=== PATIENT | male | born 1950 | race Caucasian/White ===

== ENCOUNTER 2019-07-25 01:06 | Observation (INO) ==
[2019-07-25] MEDS ORDERED: SODIUM CHLORIDE 500 ML IV STA (01:29)
[2019-07-25] MEDS ORDERED: NITROSTAT SL STA (01:29)
[2019-07-25 01:44] LABS: HEMATOCRIT 44.3 % (42.0-52.0)
[2019-07-25] MEDS ORDERED: GI COCKTAIL PO STA (01:48)
--- NOTE | 2019-07-25 01:59 | ED.PDOC ---
General ED Provider: Dr. CHEYENNE HUDSON Chief Complaint: Chest Pain Stated Complaint: Chest pain for 2-3 hours feels like a gas babble. was coded last week at [facility] and intubeted for a few days. He has a history of Atrial fibrillation and is on anticoagulation. He is [facility] also Time Seen by Physician: 12:50 Mode of Arrival: Walk-In Information Source: Patient Primary Care Provider: JAMIL ACOSTA MD Nursing and Triage Documentation Reviewed and Agree: Yes Does patient meet sepsis criteria?: No System Inflammatory Response Syndrome: Not Applicable Sepsis Protocol: For patient's 13 years and over: Temp is 96.8 and below OR 101 and greater Pulse >90 BPM Resp >20/minute Acutely Altered Mental Status Are patient's symptoms suggestive of a new infection, such as: -Pneumonia -Skin, Soft Tissue -Endocarditis -UTI -Bone, Joint Infection -Implantable Device -Acute Abdominal Infection -Wound Infection -Meningitis -Blood Stream Catheter Infection -Unknown Cardiovascular Complaint Exam Chest Pain Complaint/Exam Onset: Sudden Duration: 3 hours Symptoms Are: Still present (but better ) Timing: Intermittent Initial Severity: Moderate Current Severity: Mild Location: Reports Midsternal Pain Radiates: Reports Back Character: Reports Aching Aggravating: Reports None Alleviating: Reports Nitro Associated Signs and Symptoms: Reports Short of air History of Healthcare-Acquired Pneumonia: Reports No TAD Risk Factors: Reports Hypertension and CHF Prior Care for this Complaint: No Recent Stress Test: No Recent Echo/LV Function: No JVD Present: No Subcutaneous Emphysema Present: No Diminshed Breath Sounds: Yes Reproducible Chest Wall Pain: No Chest Picture: 1. area of chest pain Differential Diagnoses: CHF and GI Diseasae Review of Systems Review Of Systems Constitutional: Reports No symptoms Eyes: Reports No symptoms Ears, Nose, Mouth, Throat: Reports No symptoms Respiratory: Reports Cough and Short of air (mild ) Cardiac: Reports Chest pain (like a gas pain) GI: Reports No symptoms : Reports No symptoms Musculoskeletal: Reports No symptoms Skin: Reports No symptoms Neurological: Reports No symptoms Endocrine: Reports No symptoms Hematologic/Lymphatic: Reports No symptoms All Other Systems: Reviewed and Negative [facility] Medical History (Updated 07/25/19 @ 02:42 by CHEYENNE HUDSON MD) Acute respiratory failure with hypoxia (Acute) Chronic atrial fibrillation (Acute) Physical Exam Physical Exam Appearance: Reports Ill-appearing Ill-appearing: Mild Pain Distress: Moderate Eyes: Reports Conjunctiva clear ENT: Reports Nose normal Neck: Supple Respiratory: Reports Airway patent, Breath sounds clear, Breath sounds equal and Respirations nonlabored Cardiovascular: Reports RRR, Pulses normal, No rub and No murmur GI/: Reports Soft, Nontender, No masses, Bowel sounds normal and No Organomegaly Musculoskeletal: Reports Normal strength, ROM intact, No edema and No calf tenderness Skin: Reports Warm, Dry and Normal color Neurological: Reports Sensation intact, Motor intact, Reflexes intact, Cranial nerves intact, Alert and Oriented Psychiatric: Reports Anxious Interpretation Radiology Interpretation Radiology Interpretation By: Radiologist Radiology Results: No acute changes Exam Interpreted: Portable CXR Physician Notification Case Discussed Physician Notified: Norma Foley NP Time of Notification: 02:35 Critical Care Note Critical Care Note Total Time (mins): 35 Course Course Hematology/Chemistry: 07/25/19 01:40 07/25/19 01:40 Orders, Labs, Meds: Lab Review 07/25/19 07/25/19 07/25/19 01:29 01:40 01:40 WBC 9.43 RBC 4.60 L Hgb 15.1 Hct 44.3 MCV 96.3 H MCH 32.8 H MCHC 34.1 RDW Coeff of Radha 13.1 Plt Count 136 L Neutrophils % (Manual) 67.0 Lymphocytes % (Manual) 17.0 Monocytes % (Manual) 9.0 Myelocytes % 2.0 H Reactive Lymphocytes 5.0 Anisocytosis Not present PT 15.0 H INR 1.57 Puncture Site Rb O2 Saturation 78.0 L ABG pH 7.416 ABG pCO2 33.0 L ABG pO2 42.0 L* ABG HCO3 21.2 L ABG Total CO2 22 ABG Base Excess -3 L Louis Test + O2 Delivery Device Venous blood gas FiO2 % 21.0 Sodium Potassium Chloride Carbon Dioxide Anion Gap BUN Creatinine Estimated GFR (MDRD) BUN/Creatinine Ratio Glucose Calcium Total Bilirubin AST ALT Alkaline Phosphatase Total Creatine Kinase Troponin I NT-Pro-B Natriuret Pep Total Protein Albumin Globulin Albumin/Globulin Ratio 07/25/19 07/25/19 01:40 01:40 WBC RBC Hgb Hct MCV MCH MCHC RDW Coeff of Radha Plt Count Neutrophils % (Manual) Lymphocytes % (Manual) Monocytes % (Manual) Myelocytes % Reactive Lymphocytes Anisocytosis PT INR Puncture Site O2 Saturation ABG pH ABG pCO2 ABG pO2 ABG HCO3 ABG Total CO2 ABG Base Excess Louis Test O2 Delivery Device FiO2 % Sodium 133.0 L Potassium 4.37 Chloride 102.5 Carbon Dioxide 23.2 Anion Gap 11.67 BUN 17.6 Creatinine 0.81 Estimated GFR (MDRD) 94.00 BUN/Creatinine Ratio 21.72 Glucose 144.0 H Calcium 8.77 Total Bilirubin 0.46 AST 26.6 ALT 27.0 Alkaline Phosphatase 158.4 H Total Creatine Kinase 29.1 L Troponin I 0.024 NT-Pro-B Natriuret Pep 2800.000 H Total Protein 6.12 L Albumin 3.29 L Globulin 2.83 Albumin/Globulin Ratio 1.16 Orders Category Date Time Status ABG DRAW REQUEST Stat CARDIO 07/25/19 01:31 Ordered EKG-(ED ONLY) Stat CARDIO 07/25/19 01:30 Ordered ED APPLY O2 .ONCE EMERGENCY 07/25/19 01:29 Active ED IV/MEDIPORT/POWERPORT .ONCE EMERGENCY 07/25/19 01:29 Active ABG Stat LAB 07/25/19 01:29 Completed CBC W/ AUTO DIFF Stat LAB 07/25/19 01:40 Completed COMPREHENSIVE METABOLIC PANEL Stat LAB 07/25/19 01:40 Completed CREATINE KINASE Stat LAB 07/25/19 01:40 Completed MANUAL DIFFERENTIAL Stat LAB 07/25/19 01:40 Completed NT-PROBNP Stat LAB 07/25/19 01:40 Completed PT WITH INR Stat LAB 07/25/19 01:40 Completed TROPONIN I Stat LAB 07/25/19 01:40 Completed 0.9 % Sodium Chloride [Saline Flush] MEDS 07/25/19 01:29 Active 1 syr IVF PRN PRN Mag-Al Plus//Lidocaine [Gi Cocktail] MEDS 07/25/19 01:48 Discontinued 30 ml PO ONCE STA Nitroglycerin [Nitrostat] MEDS 07/25/19 01:29 Discontinued 0.4 mg SL ONCE STA Sodium Chloride 0.9% [Sodium Chloride] 500 ml MEDS 07/25/19 01:29 Active IV 125 mls/hr CHEST, 1V AP ONLY Stat RADS 07/25/19 01:30 Completed Medications Generic Name Dose Route Start Last Admin Trade Name Freq PRN Reason Stop Dose Admin Sodium Chloride 500 mls @ 125 mls/hr 07/25/19 01:29 07/25/19 01:41 Sodium Chloride IV 07/25/19 05:28 125 mls/hr .Q4H STA Administration Sodium Chloride 1 syr 07/25/19 01:29 07/25/19 01:43 Saline Flush IVF 1 syr PRN PRN Administration To flush IV Discontinued Medications Generic Name Dose Route Start Last Admin Trade Name Freq PRN Reason Stop Dose Admin Al Hydroxide/Mg Hydroxide 30 ml 07/25/19 01:48 Gi Cocktail PO 07/25/19 01:49 ONCE STA Nitroglycerin 0.4 mg 07/25/19 01:29 07/25/19 01:44 Nitrostat SL 07/25/19 01:30 0.4 mg ONCE STA Administration Vital Signs: Temp Pulse Resp BP Pulse Ox 07/25/19 01:08 99.1 F 117 H 24 155/88 H 98 HOLLI Risk Score Age >/= 65: Yes >/= 3 CAD Risk Factors: Yes Known CAD (Stenosis >/= 50%): Yes ASA Use in Past 7 Days: No Severe Angina (>/= 2 episodes in 24 hours): No EKG ST Changes >/= 0.5mm: No Postive Cardiac Marker: No HOLLI Total Score: 3 HOLLI Risk Score: Risk Score Odds of by 30D 0 0.1 (0.1-0.2) 1 0.3 (0.2-0.3) 2 0.4 (0.3-0.5) 3 0.7 (0.6-0.9) 4 1.2 (1.0-1.5) 5 2.2 (1.9-2.6) 6 3.0 (2.5-3.6) 7 4.8 (3.8-6.1)
--- NOTE | 2019-07-25 02:25 | DI ---
EXAM: AP single view of the chest. HISTORY: Chest pain. FINDINGS: There is a single lead pacemaker. The cardiac silhouette and pulmonary vasculature are wit hin normal limits. The costophrenic angles are clear. There is left basilar atelectasis and/or pneu monia. Impression: Left basilar atelectasis and/or pneumonia.
[2019-07-25] MEDS ORDERED: ZOFRAN 4 MG/2 ML IVP PRN ×2 (02:50→11:10)
[2019-07-25] MEDS ORDERED: MORPHINE SULFATE TAB PO PRN ×2 (02:56→12:00)
[2019-07-25] MEDS ORDERED: MYLICON PO SCH (02:56)
[2019-07-25] MEDS ORDERED: DUONEB NEB PRN (02:56)
[2019-07-25] MEDS ORDERED: NORCO 7.5-325 PO PRN (02:56)
[2019-07-25] MEDS ORDERED: TRANSDERM-SCOP 1.5 MG PATCH TD PRN (02:56)
[2019-07-25] MEDS ORDERED: MYLANTA SUSP PO PRN (03:20)
[2019-07-25 03:32] VITALS: BMI 33.3
[2019-07-25] MEDS: TESSALON PERLES PO SCH ×2 (03:39→09:48)
[2019-07-25] MEDS: NEXIUM IV IVP SCH ×2 (03:47→10:16)
[2019-07-25] MEDS: SODIUM CHLORIDE 1,000 ML IV SCH ×2 (06:22→17:14)
[2019-07-25] MEDS ORDERED: DIABETA PO SCH (09:00)
[2019-07-25] MEDS ORDERED: VITAMIN D PO SCH ×2 (09:00→11:10)
[2019-07-25] MEDS ORDERED: ZEBETA PO SCH ×2 (09:00→11:10)
[2019-07-25] MEDS ORDERED: MUCINEX PO SCH (09:00)
[2019-07-25 09:07] LABS: HEMATOCRIT 45.3 % (42.0-52.0)
--- NOTE | 2019-07-25 09:41 | PCM ---
Chief Complaint Chief Complaint: "Chest pain" History of Present Illness History of Present Illness: Patient was examined at 8:50 AM 07/25/2019 at his bedside by this SHEET ROCK TAPER HELPER. Elenita Pascual is a 69 yo male w/ recent admission to [facility] 06/25/2019 through 07/10/2019 w/ discharge diagnoses: sepsis, chronic afib, afib with RVR, pneumonia, acute metabolic encephalopathy, ARF with hypoxia, hyponatremia, CHF, S/A node dysfunction. While hospitalized he was in ICU the entire time w/ patient coding d/t cardiac arrest w/o CA (per Dr. Bucio report to patient) w/ patient responding to 5 minutes of CPR and intubation/vent for 3 days. His primary medications were Ceftriaxone, Vancomycin and diltiazem gtt. Patient was d/c to [place], [place] and pt. went AMA 07/12/19 afternoon as he "was tired of everyone telling him what to do." Notes his has COPD, so he has used her supply at 2L/NC O2 whenever his O2 sat was 94% one or two times a day for an hour or more if needed to relieve mild SOB. Mr. Elenita Pascual, [facility] patient, then presented to [facility] ER 07/24/2019 approx 23:00 w/ c/o's new onset of "gas bubble-like" upper mid sternal chest pressure radiating to "my back between my shoulders" rated 7-8 on admission/at worst and currently 0/10. CP lasted approximately 2.5 hrs. 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 He tried rest at home, but no other tx. There was associated SOB at rest, anxiety, and racing heart; denies diaphoresis, dizziness, syncope, N/V, weakness, N/T, or edema. Patient states he has had no CP in the past except mid-sternal ribs TTT after CPR that fractured the ribs in that area. Patient is currently wanting "quick treatment" so that he can go home. SHEET ROCK TAPER HELPER has requested records from his recent admission from [facility] to review. Dr. Seymour was called and informed by MICK Buchanan of consult and will see the patient later today. Patient is currently stable and pain free. Patient was admitted as Obs for Acute CP to Obi Varner, SHEET ROCK TAPER HELPER Hospitalist and Dr. Gonzalez, who saw the patient last in the DC 07/13/2019 per his chart notes[address] Dr. Gonzalez has been called and refuses patient admission as he was seeing patient only as NH patient and not for his office practice. Dr. Mateus Seymour has seen patient in past for cardiology consult and has been consulted this visit. Previous consults per External Chart reviews include Dr. Dominick Bucio, 06/26/2019 of [facility] and Gonzales Morales, [facility]. Review of requested records H&P, Progress Notes, D/C Summary, Lab results, EKG, Radiology reporst, ECHO findings, and other information of [facility] with these findings (performed per SHEET ROCK TAPER HELPER Hospitalist Sanam Varner): * 07/25/18 Pt was admitted to PCU Day #1 w/ acute respiratory distress; Ceftriaxone and Doxycycline empiric therapy for CAP started. * 06/25/2019 CT Head w/o contrast= Normal ventricle size; Minimal cortical atrophy; Moderate small vessel disease w/in the periventricular & subcortical white matter; No hemorrhage or mass effect; No cortical infact seen; Clear paranasal sinuses. * 06/25/19 CXR= Infiltrate or atelectasis RLL; The lungs are poorly inflated; Moderate cardiomegaly. * 06/25/19 EKG reading A Fib w/ LBBB w/o obvious signs of acute ischemia. No rate given. * 06/26/2019 CXR Portable =Atlelctatic LLL; Lungs otherwise well aerated. No pneumothorax; Heart size stable; The pulmonary vasculature are much less prominent on thei exam with decreased perbronchial and interstitial thickening; The osseous structures and surrounding soft tissues demonstrate no acute abnormality. * 06/26/2019 Medtronic Single Chamber Pacemaker interrogation: Normal pacemaker function; Adequate battery reserve; Appropriate pacing & sensing thresholds, and diagnostic functions; No adjustments made. (Dr. Bucio) * Recent abnormal labs = 07/10/19 03:43 WBC 17.3 ; Hgb 13.9 ; PLT 283; Na 129 ; K 4.9 ; CL 92 ; CO2 26; BUN 22 ; Creatinine 0.9 ; Glucose 273. * 06/25/2019 14:42 Troponin <0.01 Patient was told upon discharge by director of neighborhood service center, Dr. Dominick Bucio) that he did not have an CA this hospital admission. * 06/29/2019 Hospital Course entry note LVEF 20-25% No ECHO sent per [facility] system. 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 s/p intubation/vent/CPR.) and pain with breathing (Upper mid sternal area where he has rib fx's d/t CPR.); No shortness of air, wheeze and hemoptysis Cardiovascular: chest pain (see HPI; none at present.); No left arm pain, diaphoresis, orthopnea, edema, palpitations and syncope Gastrointestinal: No abdominal pain, nausea, vomiting, diarrhea, melena, hematemesis, hematochezia and constipation (Last BM 07/24/2019.) Genitourinary: No dysuria, hematuria, frequency, incontinence and flank pain Neurological: No headache, dizziness, seizure, numbness, weakness, speech difficulty, problems with walking, tremor and fainting Musculoskeletal: pain ("normal arthritis pain in my hands, arsenio. knees----nothing I can't live with"; denies pain prn for this pain. ); No swelling in joints Skin: bruising (Bilateral upper extremities from multiple blood draw/IV attempts recently & coumadin use. ); No rash, pruritus and wounds Hematology: easy bruising; No easy bleeding and swollen glands Endocrine: other (07/12/2019 Had swelling entire BLE after starting Pregabalin therapy at SNF and resolve 3 days after d/c'd.); No weight changes, cold intolerance, heat intolerance, excessive thirst, excessive hunger and polyuria Psychiatric: No depression, anxiety, sleeplessness, hopelessness, suicidal (Denies hx SI/HI) and hallucinations Habits: No tobacco use (ST use of cigarettes <1PPD x 4 yrs 1971 while in service. NO tobacco since. ), substance use and alcohol use Allergies Allergies Allergy/AdvReac Type Severity Reaction Status Date / Time lisinopril AdvReac Unknown cough Verified 07/25/19 12:51 pregabalin AdvReac Unknown Swelling Verified 07/25/19 10:17 [facility] Medical History Acute respiratory failure with hypoxia (Resolved) Atrial fibrillation with rapid ventricular response (Acute) Chronic atrial fibrillation (Chronic) Chronic low back pain (Chronic) Chronic respiratory failure with hypoxia, on home O2 therapy (Chronic) Chronic viral hepatitis C (Inactive) Compressed vertebrae (Acute) Elevated brain natriuretic peptide (BNP) level (Acute) Essential hypertension (Chronic) Gastroesophageal reflux disease with hiatal hernia (Chronic) Hyperlipemia (Chronic) Hypertensive cardiomegaly with heart failure (Chronic) longterm current use of anticoagulant (Chronic) Morbid obesity (Acute) long-term resident (Inactive) Pacemaker (Chronic) Sick sinus syndrome (Inactive) Spinal stenosis (Acute) Systolic CHF, chronic (Acute) Type 2 diabetes mellitus with complication, with long-term current use of insulin (Chronic) [place] [employer] (Chronic) Surgical History History of cholecystectomy (Acute) Pacemaker (Acute) Family History Mother Congestive heart disease Diabetes TIA (transient ischemic attack) Father Cancer Other Hypertension Social History Smoking and tobacco status: Former smoker Tobacco: How many years used: 3 Passive smoking exposure: No Smoking status start date: 07/25/67 Smoking status stop date: 03/20/71 How long ago did patient quit smokin years ago; <1PPD X 3 yrs. Alcohol intake: former Substance use type: does not use Household members: spouse Housing: house Lives independently: No Highest education level completed: high school graduate service: Yes Current occupational status: retired Do you think of yourself as: straight/heterosexual Current gender identity: male Medications Medications: Medications Generic Name Dose Route Start Last Admin Trade Name Freq PRN Reason Stop Dose Admin Al Hydroxide/Mg Hydroxide 30 ml 01/26/20 03:20 Mylanta Susp PO DAILY PRN Heartburn Atorvastatin Calcium 10 mg 07/25/19 21:00 Lipitor PO BEDTIME COUNT INCLUDES THE [facility] Benzonatate 100 mg 07/25/19 02:56 07/25/19 03:39 Tessalon Perles PO 100 mg TID COUNT INCLUDES THE [facility] Administration Bisoprolol Fumarate 5 mg 07/25/19 09:00 Zebeta PO DAILY COUNT INCLUDES THE [facility] Cholecalciferol 5,000 unit 07/25/19 09:00 Vitamin D PO DAILY COUNT INCLUDES THE [facility] Diltiazem HCl 180 mg 07/25/19 21:00 Cardizem Cd PO BEDTIME COUNT INCLUDES THE [facility] Esomeprazole Magnesium 40 mg 07/25/19 03:30 07/25/19 03:47 Nexium Iv IVP 40 mg DAILY COUNT INCLUDES THE [facility] Administration Fluticasone Propionate 1 spray 07/25/19 21:00 Flonase LAINE BEDTIME COUNT INCLUDES THE [facility] Glyburide 10 mg 07/25/19 09:00 Diabeta PO BID COUNT INCLUDES THE [facility] Sodium Chloride 1,000 mls @ 83 mls/hr 07/25/19 03:30 07/25/19 06:22 Sodium Chloride IV 83 mls/hr .Q12H3M COUNT INCLUDES THE [facility] Administration Insulin Glargine 28 unit 07/25/19 21:00 Lantus SUBCUT BEDTIME COUNT INCLUDES THE [facility] Morphine Sulfate 2 mg 07/25/19 02:50 Morphine 2 Mg/Ml Syringe IVP Q4H PRN Severe Pain Morphine Sulfate 30 mg 07/25/19 02:56 Morphine Sulfate Tab PO BID PRN Severe Pain Ondansetron HCl 4 mg 07/25/19 02:50 Zofran 4 Mg/2 Ml IVP Q6H PRN Nausea / Vomiting Scopolamine HBr 1 patch 07/25/19 02:56 Transderm-Scop 1.5 Mg Patch TD Q3D PRN for secretions Sodium Chloride 1 syr 07/25/19 01:29 07/25/19 01:43 Saline Flush IVF 1 syr PRN PRN Administration To flush IV Warfarin Sodium 5 mg 07/26/19 17:00 Coumadin PO DIRECTED@1700 COUNT INCLUDES THE [facility] Warfarin Sodium 7.5 mg 07/25/19 17:00 Coumadin PO WEEKLY@1700 COUNT INCLUDES THE [facility] Body Composition Height: 5 ft 11 in Weight: 239 lb 6.752 oz Body Mass Index (BMI): 33.3 Physical Examination HEENT: Vital Signs Temp Pulse Pulse Resp BP Pulse Ox 07/25/19 10:00 98 F 79 20 136/83 98 07/25/19 08:00 22 07/25/19 05:53 97.8 F 78 20 128/78 99 07/25/19 03:32 114 H 07/25/19 03:27 98.5 F 85 14 100 07/25/19 01:08 99.1 F 117 H 24 155/88 H 98 General Appearance: Patient is moderately ill-appearing, well-nourished man in [facility]. Skin: Scattered irregular patches of bruising bilateral forearms L>R. No rash. No pallor. Normal texture for elderly man, fair turgor, warm, dry. Head: Normocephalic; No lesions or tenderness to palpation. No signs of trauma. All sinuses non- tender on palpation. Eyes: Lids w/o swelling, erythema, or lesions. PERRLA. No signs of pallor. No scleral icterus. No erythema of iris/conjunctiva. No drainage or periorbital edema. Vision grossly intact. Ears: No pinna tenderness or abnormality. Bilateral canals patent w/o erythema, tenderness, edema, wax or d/c. TM's shiny gilles/doran w/ landmarks present; no b ulging or fluid present. Hearing intact. Nose: Patent bilaterally. Nasal mucosa pink and moist. No lesions. No discharge or blood noted. Throat: Pharynx w/o slight injection; no cobblestoning, lesions or PND. Tonsils w/o deviation, enlargement or lesions. Uvula midline. Mouth: Oral mucosa pink and moist. Few missing teeth w/ non-inflammed dental carries area right upper molar region. No gum erythema, swelling, or lesions. Dentition discussed and appropriate oral care. Tongue normal/midline. Neck: Supple; NT to palpation w/o masses or lymphadenopathy; no thyromegaly; FROM w/o pain. Chest: Chest wall symmetric; no pectus deformity. TTT mid-sternal region over CPR area w/ slight indentation noted at greatest point of tenderness to palpation. Telemetry --A fib rate 80-90's. Heart: Carotid Arteries normal, no bruits or abnormal pulsations. Jugular veins w/o pulsations or JVD. PMI non-displaced; no palpable thrill or heaves. RRR, S1, S2 w/ no abnormal sounds. No murmurs, rubs, or gallops. PPP 2+/4+ =. Extremities w/o clubbing, cyanosis, edema or significant temperature changes. NBB. Lungs: CTA; No rales, rhonchi, or wheezes. No retractions. Respirations easy and regular. No retractions. Intermittent TNP cough. O2 @ 2L/NC w/ O2 sat 98-99%. Pt. pulling O2 off at times. Abdomen: Non-distended, soft, NT, no rebound tenderness or guarding, no masses or organomegaly. FRITZ/SO present; no bruits. No hernias noted. Rectal not examined. Neurological: A/OX4. Cranial nerves II-XII evaluated and intact. ARAUJO well; symmetrical. Symmetrical face and body posture. Adam's negative. Rhomberg weakly positive. Reflexes intact w/ DTR 2+/4+ patellar, Achilles, bicep, brachial and triceps. Strength 4+/5+ = bilaterally UE and LE. Tandem gait was normal symmetric. Sensation intact to light touch and sharp vs dull on distal arms and legs. No Parkinsons or other tremor, head bobbing, or pill rolling tremor noted. M/S: ARAUJO well and symmetrically. No digital clubbing or cyanosis present w/ sensation intact X4. All extremities w/ normal temperature; no swelling, edema, or ulcerations. DP pulses 2+ bilaterally. Pedal hair intact. Normal capillary refill. NeuroPsych: Alert & oriented X4. Good eye contact. Cooperative at present. Fidgeting at times in bed. Thought content appropriate. ST & LT memory intact w/ helps on phone finding his past medical information; admits that he does not remember much about his recent hospitalization at [facility] w/ sepsis and CPR resulting in Vent dependency. Judgement appropriate. Denies active thoughts or plan SI or HI; no history suicide attempt or ideation in past. Lab/Tests/Diagnostic Imaging Lab/Tests/Diagnostic Imaging: Lab Review 07/25/19 07/25/19 07/25/19 01:29 01:40 01:40 WBC 9.43 RBC 4.60 L Hgb 15.1 Hct 44.3 MCV 96.3 H MCH 32.8 H MCHC 34.1 RDW Coeff of Radha 13.1 Plt Count 136 L Neutrophils % (Manual) 67.0 Lymphocytes % (Manual) 17.0 Monocytes % (Manual) 9.0 Myelocytes % 2.0 H Reactive Lymphocytes 5.0 Anisocytosis Not present PT 15.0 H INR 1.57 Puncture Site Rb O2 Saturation 78.0 L ABG pH 7.416 ABG pCO2 33.0 L ABG pO2 42.0 L* ABG HCO3 21.2 L ABG Total CO2 22 ABG Base Excess -3 L Louis Test + O2 Delivery Device Venous blood gas FiO2 % 21.0 Sodium Potassium Chloride Carbon Dioxide Anion Gap BUN Creatinine Estimated GFR (MDRD) BUN/Creatinine Ratio Glucose Calcium Total Bilirubin AST ALT Alkaline Phosphatase Total Creatine Kinase Troponin I NT-Pro-B Natriuret Pep Total Protein Albumin Globulin Albumin/Globulin Ratio 07/25/19 07/25/19 01:40 01:40 WBC RBC Hgb Hct MCV MCH MCHC RDW Coeff of Radha Plt Count Neutrophils % (Manual) Lymphocytes % (Manual) Monocytes % (Manual) Myelocytes % Reactive Lymphocytes Anisocytosis PT INR Puncture Site O2 Saturation ABG pH ABG pCO2 ABG pO2 ABG HCO3 ABG Total CO2 ABG Base Excess Louis Test O2 Delivery Device FiO2 % Sodium 133.0 L Potassium 4.37 Chloride 102.5 Carbon Dioxide 23.2 Anion Gap 11.67 BUN 17.6 Creatinine 0.81 Estimated GFR (MDRD) 94.00 BUN/Creatinine Ratio 21.72 Glucose 144.0 H Calcium 8.77 Total Bilirubin 0.46 AST 26.6 ALT 27.0 Alkaline Phosphatase 158.4 H Total Creatine Kinase 29.1 L Troponin I 0.024 NT-Pro-B Natriuret Pep 2800.000 H Total Protein 6.12 L Albumin 3.29 L Globulin 2.83 Albumin/Globulin Ratio 1.16 Patient: ELENITA PASCUAL Acct:[id number] Record: [id number] : 1950Loc: RADRoom/Bed: Age/Sex: 68 / MADM Status: REG CLI Date of Service: 07/13/19 Ordering Physician: JAMIL ACOSTA MD Procedure(s): CT CHEST W/O CONTRAST Report Number(s): [id number] Accession Number(s): [id number] cc: JAMIL ACOSTA MD EXAM: CT THORAX HISTORY: Shortness of breath. TECHNIQUE: CT thorax without intravenous contrast. Multiplanar images presented. COMPARISON: None FINDINGS: Mild cardiac enlargement. No pericardial effusion. There is atherosclerotic disease including the coronary artery levels. Pacemaker is noted. There are a few small nonspecific mediastinal and hilar lymph nodes. There are a few small discoid opacities in the lung bases slightly more noticeable on the left. Lungs are otherwise clear. No central vascular congestion, interstitial edema, pleural fluid or pneumothorax. Bones are within normal limits. There is a tiny sliding hiatal hernia with fluid in the lower portion of the esophagus consistent with gastroesophageal reflux. Incidental note of a fatty right adrenal nodule measuring 16 mm most consistent with an adenoma. Nonspecific bilateral perinephric fat stranding IMPRESSION: 1. There are a few small discoid opacities in the lung bases slightly more noticeable on the left. These could represent areas of atelectasis or pneumonia. Correlate clinically. Lungs are otherwise clear. 2. Cardiomegaly. 3. Atherosclerotic disease. 4. Probable tiny sliding hiatal hernia. Gastroesophageal reflux. 5. Small right adrenal adenoma. Dictated By:BILLY GUILLAUME Signed By:BILLY GUILLAUME 07/16/2019 [facility] U/S Venous Scan Arsenio Legs Doppler Patient: ELENITA PASCUAL Acct:[id number] Record: [id number] : 1950Loc: RADRoom/Bed: Age/Sex: 68 / MADM Status: REG CLI Date of Service: 07/16/19 Ordering Physician: JAMIL ACOSTA MD HISTORY: Leg edema. FINDINGS: Bilateral lower extremity venous Doppler exam. Real time doran-scale, Doppler spectral analysis and color-flow Doppler imaging performed. The veins targeted for evaluation include the common femoral, greater saphenous, profundus, femoral, popliteal, peroneal, anterior tibial and posterior tibial. The right anterior tibial veins were not seen. The evaluated veins demonstrated normal spontaneous flow and compression without evidence of thrombosis. IMPRESSION: No venous thrombosis identified within the areas evaluated. Patient: ELENITA PASCUAL WAcct:[id number] Record: [id number] : 1950Loc: EDRoom/Bed: Age/Sex: 69 / MADM Status: REG ERDate of Service: 07/25/19 Ordering Physician: CHEYENNE HUDSON MD Procedure(s): CHEST, 1V AP ONLY EXAM: AP single view of the chest. HISTORY: Chest pain. FINDINGS: There is a single lead pacemaker. The cardiac silhouette and pulmonary vasculature are within normal limits. The costophrenic angles are clear. There is left basilar atelectasis and/or pneumonia. Impression: Left basilar atelectasis and/or pneumonia. Dictated By:HOWARD RICO Signed By:HOWARD RICO Orders Category Date Time Status ADMIT OBSERVATION [PLACE PATIENT OBSERVATION] .TO ADMISSION 07/25/19 02:49 Active MEDSURG (MONITORED BED) ABG DRAW REQUEST Stat CARDIO 07/25/19 01:31 Completed ECHOCARDIOGRAM 2D-M MODE Routine CARDIO 07/25/19 02:50 Ordered EKG-(ED ONLY) Stat CARDIO 07/25/19 01:30 Completed ACTIVITY .BR with BRP CARE 07/25/19 03:19 Active ACTIVITY .Up ad Mihaela CARE 07/25/19 02:51 Active BLOOD GLUCOSE MONITORING 0630,1100,1700,2100 CARE 07/25/19 03:20 Active GIVE HS SNACK 2100 CARE 07/25/19 02:52 Active INTAKE & OUTPUT Q8HR CARE 07/25/19 02:50 Active NOTIFY PHYSICIAN OF CONSULT ONCE CARE 07/25/19 03:21 Active NOTIFY PHYSICIAN OF CONSULT ONCE CARE 07/25/19 03:41 Completed SCD [VTE PREVENTION] .SCD 24 Hours CARE 07/25/19 03:18 Active TELEMETRY MONITORING TELE CARE 07/25/19 02:51 Active VITAL SIGNS Q4HR CARE 07/25/19 02:51 Active WEIGH PATIENT 0600 CARE 07/25/19 08:07 Active CONSULT DOCTOR [PHYSICIAN CONSULTATION] [CONS] Routine CONSULTS 07/25/19 03:21 Ordered PHYSICIAN CONSULTATION [CONS] Routine CONSULTS 07/25/19 07:00 Ordered 2 GRAM SODIUM DIET DIETARY 07/25/19 Breakfast Ordered ADA 1800 OJSE. DIET DIETARY 07/25/19 Breakfast Ordered HS SNACK DIETARY 07/25/19 Dinner Ordered ED APPLY O2 .ONCE EMERGENCY 07/25/19 01:29 Active ED IV/MEDIPORT/POWERPORT .ONCE EMERGENCY 07/25/19 01:29 Active ABG Stat LAB 07/25/19 01:29 Completed BASIC METABOLIC PANEL DAILY@0600 LAB 07/26/19 06:00 Ordered BASIC METABOLIC PANEL Routine LAB 07/25/19 09:00 Received CBC W/ AUTO DIFF DAILY@0600 LAB 07/25/19 09:00 Received CBC W/ AUTO DIFF DAILY@0600 LAB 07/26/19 06:00 Ordered CBC W/ AUTO DIFF Stat LAB 07/25/19 01:40 Completed COMPREHENSIVE METABOLIC PANEL Stat LAB 07/25/19 01:40 Completed CREATINE KINASE Q8H LAB 07/25/19 09:00 Received CREATINE KINASE Q8H LAB 07/25/19 17:00 Ordered CREATINE KINASE Stat LAB 07/25/19 01:40 Completed MANUAL DIFFERENTIAL Stat LAB 07/25/19 01:40 Completed NT-PROBNP Stat LAB 07/25/19 01:40 Completed PT WITH INR Stat LAB 07/25/19 01:40 Completed TROPONIN I Q8H LAB 07/25/19 09:00 Received TROPONIN I Q8H LAB 07/25/19 17:00 Ordered TROPONIN I Stat LAB 07/25/19 01:40 Completed 0.9 % Sodium Chloride [Saline Flush] MEDS 07/25/19 01:29 Active 1 syr IVF PRN PRN Atorvastatin Calcium [Lipitor] MEDS 07/25/19 21:00 Active 10 mg PO BEDTIME Benzonatate [Tessalon Perles] MEDS 07/25/19 02:56 Active 100 mg PO TID Bisoprolol Fumarate [Zebeta] MEDS 07/25/19 09:00 Active 5 mg PO DAILY Cholecalciferol (Vitamin D3) [Vitamin D] MEDS 07/25/19 09:00 Active 5,000 unit PO DAILY Diltiazem HCl [Cardizem Cd] MEDS 07/25/19 21:00 Active 180 mg PO BEDTIME Esomeprazole Sodium [Nexium IV] MEDS 07/25/19 03:30 Active 40 mg IVP DAILY Fluticasone Propionate [Flonase] MEDS 07/25/19 21:00 Active 1 spray LAINE BEDTIME Glyburide [Diabeta] MEDS 07/25/19 09:00 Active 10 mg PO BID Guaifenesin [Mucinex] MEDS 07/25/19 09:00 Discontinued 600 mg PO BID Hydrocodone Bit/Acetaminophen [Fischer 7.5-325] MEDS 07/25/19 02:56 Discontinued 1 tab PO TID PRN Insulin Glargine,Hum.rec.anlog [Lantus] MEDS 07/25/19 21:00 Active 28 unit SUBCUT BEDTIME Mag Hydrox/Al Hydrox/Simeth [Mylanta Susp] MEDS 07/25/19 03:20 Active 30 ml PO DAILY PRN Mag-Al Plus//Lidocaine [Gi Cocktail] MEDS 07/25/19 01:48 Discontinued 30 ml PO ONCE STA Morphine Sulfate [Morphine 2 mg/ml Syringe] MEDS 07/25/19 02:50 Active 2 mg IVP Q4H PRN Morphine Sulfate [Morphine Sulfate Tab] MEDS 07/25/19 02:56 Active 30 mg PO BID PRN Nitroglycerin [Nitrostat] MEDS 07/25/19 01:29 Discontinued 0.4 mg SL ONCE STA Ondansetron HCl/Pf [Zofran 4 mg/2 ml] MEDS 07/25/19 02:50 Active 4 mg IVP Q6H PRN Scopolamine Hydrobromide [Transderm-Scop 1.5 mg Patch] MEDS 07/25/19 02:56 Active 1 patch TD Q3D PRN Simethicone [Mylicon] MEDS 07/25/19 02:56 Discontinued 80 mg PO QID Sodium Chloride 0.9% [Sodium Chloride] 1,000 ml MEDS 07/25/19 03:30 Active IV 83 mls/hr Sodium Chloride 0.9% [Sodium Chloride] 500 ml MEDS 07/25/19 01:29 Discontinued IV 125 mls/hr Warfarin Sodium [Coumadin] MEDS 07/26/19 17:00 Active 5 mg PO DIRECTED@1700 Warfarin Sodium [Coumadin] MEDS 07/25/19 17:00 Active 7.5 mg PO WEEKLY@1700 RESUSCITATION STATUS Routine OTHERS 07/25/19 02:50 Ordered CHEST, 1V AP ONLY Stat RADS 07/25/19 01:30 Completed Medications Generic Name Dose Route Start Last Admin Trade Name Freq PRN Reason Stop Dose Admin Al Hydroxide/Mg Hydroxide 30 ml 07/25/19 03:20 Mylanta Susp PO DAILY PRN Heartburn Atorvastatin Calcium 10 mg 07/25/19 21:00 Lipitor PO BEDTIME RIAZ Benzonatate 100 mg 07/25/19 02:56 07/25/19 03:39 Tessalon Perles PO 100 mg TID RIAZ Administration Bisoprolol Fumarate 5 mg 07/25/19 09:00 Zebeta PO DAILY RIAZ Cholecalciferol 5,000 unit 07/25/19 09:00 Vitamin D PO DAILY COUNT INCLUDES THE [facility] Diltiazem HCl 180 mg 07/25/19 21:00 Cardizem Cd PO BEDTIME COUNT INCLUDES THE [facility] Esomeprazole Magnesium 40 mg 07/25/19 03:30 07/25/19 03:47 Nexium Iv IVP 40 mg DAILY COUNT INCLUDES THE [facility] Administration Fluticasone Propionate 1 spray 07/25/19 21:00 Flonase LAINE BEDTIME COUNT INCLUDES THE [facility] Glyburide 10 mg 07/25/19 09:00 Diabeta PO BID COUNT INCLUDES THE [facility] Sodium Chloride 1,000 mls @ 83 mls/hr 07/25/19 03:30 07/25/19 06:22 Sodium Chloride IV 83 mls/hr .Q12H3M COUNT INCLUDES THE [facility] Administration Insulin Glargine 28 unit 07/25/19 21:00 Lantus SUBCUT BEDTIME COUNT INCLUDES THE [facility] Morphine Sulfate 2 mg 07/25/19 02:50 Morphine 2 Mg/Ml Syringe IVP Q4H PRN Severe Pain Morphine Sulfate 30 mg 07/25/19 02:56 Morphine Sulfate Tab PO BID PRN Severe Pain Ondansetron HCl 4 mg 07/25/19 02:50 Zofran 4 Mg/2 Ml IVP Q6H PRN Nausea / Vomiting Scopolamine HBr 1 patch 07/25/19 02:56 Transderm-Scop 1.5 Mg Patch TD Q3D PRN for secretions Sodium Chloride 1 syr 07/25/19 01:29 07/25/19 01:43 Saline Flush IVF 1 syr PRN PRN Administration To flush IV Warfarin Sodium 5 mg 07/26/19 17:00 Coumadin PO DIRECTED@1700 COUNT INCLUDES THE [facility] Warfarin Sodium 7.5 mg 07/25/19 17:00 Coumadin PO WEEKLY@1700 COUNT INCLUDES THE [facility] Discontinued Medications Generic Name Dose Route Start Last Admin Trade Name Freq PRN Reason Stop Dose Admin Hydrocodone Bitart/Acetaminophen 1 tab 07/25/19 02:56 Fischer 7.5-325 PO TID PRN moderate pain Al Hydroxide/Mg Hydroxide 30 ml 07/25/19 01:48 07/25/19 02:57 Gi Cocktail PO 07/25/19 01:49 Not Given ONCE STA Guaifenesin 600 mg 07/25/19 09:00 Mucinex PO BID COUNT INCLUDES THE [facility] Sodium Chloride 500 mls @ 125 mls/hr 07/25/19 01:29 01/26/20 01:41 Sodium Chloride IV 07/25/19 05:28 125 mls/hr .Q4H STA Administration Nitroglycerin 0.4 mg 07/25/19 01:29 07/25/19 01:44 Nitrostat SL 07/25/19 01:30 0.4 mg ONCE STA Administration Simethicone 80 mg 07/25/19 02:56 07/25/19 03:36 Mylicon PO Not Given QID RIAZ Assessment (1) Acute chest pain: Status: Acute Code(s): R07.9 - Chest pain, unspecified SNOMED Code(s): 898162106 (2) Hypertensive cardiomegaly with heart failure: Status: Chronic Code(s): I11.0 - Hypertensive heart disease with heart failure SNOMED Code(s): 337623999 (3) Chronic atrial fibrillation: Status: Chronic Code(s): I48.2 - Chronic atrial fibrillation SNOMED Code(s): 603353541 (4) Systolic CHF, chronic: Status: Acute Code(s): I50.22 - Chronic systolic (congestive) heart failure SNOMED Code(s): 641925311 (5) Elevated brain natriuretic peptide (BNP) level: Status: Acute Code(s): R79.89 - Other specified abnormal findings of blood chemistry SNOMED Code(s): 766069370 (6) Type 2 diabetes mellitus with complication, with long-term current use of insulin: Status: Chronic Code(s): E11.8 - Type 2 diabetes mellitus with unspecified complications; Z79.4 - buttermaker (current) use of insulin SNOMED Code(s): 99028844 (7) Hyperlipemia: Status: Chronic Code(s): E78.5 - Hyperlipidemia, unspecified SNOMED Code(s): 16659630 Qualifiers: Hyperlipidemia type: unspecified Qualified Code(s): E78.5 - Hyperlipidemia, unspecified (8) Atherosclerotic heart disease of [place] coronary artery without angina pectoris: Status: Acute Code(s): I25.10 - Atherosclerotic heart disease of [place] coronary artery without angina pectoris SNOMED Code(s): 5867892027728 Qualifiers: [place] vs. transplanted heart: [place] heart Qualified Code(s): I25.10 - Atherosclerotic heart disease of [place] coronary artery without angina pectoris (9) Essential hypertension: Status: Chronic Code(s): I10 - Essential (primary) hypertension SNOMED Code(s): 64528418 (10) Pacemaker: Status: Chronic Code(s): Z95.0 - Presence of cardiac pacemaker SNOMED Code(s): 243264555 (11) Morbid obesity: Status: Acute Code(s): E66.01 - Morbid (severe) obesity due to excess calories SNOMED Code(s): 687930531 (12) longterm current use of anticoagulant: Status: Chronic Code(s): Z79.01 - buttermaker (current) use of anticoagulants SNOMED Code(s): 906277136 (13) Chronic low back pain: Status: Chronic Code(s): M54.5 - Low back pain SNOMED Code(s): 642572686 Qualifiers: Back pain laterality: bilateral Sciatica presence: unspecified whether sciatica present Qualified Code(s): M54.5 - Low back pain; G89.29 - Other chronic pain (14) 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 after admission. CP complicated w/ Hypertensive cardiomegaly w/ chronic Systolic CHF EF 20-25% 06/29/19 ([facility]) and episodes of A Fib w/ RVR and 2009 insertion of Medtronic Single Chamber PM (interrogation 06/26/19 was normal/no issues). Dr. Mateus Seymour, cardiology, has been consulted. Patient is threatening to go AMA w/ staff; he likes to be independent and doesn't want anyone telling him what to do. [employer] spoke at great lenghth explaining current test results, patient risk factors for adverse events w/ his complicated medical hx and recent 2-3 week ICU stay w/ vent X 3 days, and verification of DNR status (Pt. verbalizes he wants to be Full Code w/ review of ACLS options when his heart stops beating or respirations cease.) Spoke that he should at least see Dr. Mateus Seymour for furhter evaluation; pt. is willing to stay in hospital at present as he would like to have Dr. 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 Yanira Avila, [facility]). Admit for OBS Acute CP. Telemetry. Continue Home meds w/ adjustments & management per Dr. Marielos Seymour; O2 per protocol; VS q 4hrs & prn; IV cont'd w/ decrease rate 125 to 83ml/hr; Heart Healthy diet w/ 1800 ADA; BR w/ BRP's w/ asst. until known stable.; STAT EKG for CP and alert Cardiology. Monitor labs & VS. Will need F-U w/ [facility] upon d/c 2-3 days. Case Management to follow for asst as needed. * Hypertensive Cardiomegaly w/ HF, --Systolic CHF,Chronic Current status unknown, but guarded w/ recent Cardiac Arrest--Likely Cardiology will recheck ECHO; BNP appears to be Chronic d/t his Chronic health issues (Cardiology agrees) con't home meds; Daily weights; I&); monitor VS and for medication side effects; See Acute CP. Medication compliance may be a challenge; patient will need lots of education and encouragement. Supportive note. * Chronic AFib w/ hx RVR- Stable at present; no RVR at present this admission;Con't home meds for now. Cards consult; Telemetry See above plans of care. * Type 2 DM w/ LT use of Insulin--Stable at present w/ noted increase of A1C indicating need for better home control; Pt state last A1C 08/2018 7.0; 07/13/2019 A1C 8.48. Fasting FS this AM 119. Continue home Lantus w/ SSI prn. 1800 ADA diet w/ Heart Healthy. Monitor labs and AC HS FSGM. [facility] upon [facility] for evaluation of Lantus dosing. * Hyperlipidemia w/ ASHD--Continue home Atorvastatin; diet as ordered; F-u w/ Back Tender Fourdrinier for labs as needed. LFT's appear normal now. * Essential HTN-- continue home meds; Heart Healthy diet; monitor VS. * Hx SA Node Sick Sinus Syndrome w/ Pacemaker POA--Stable; 06/26/2019 Truisttronic Single Chamber Pacemaker interrogation: Normal pacemaker function; Adequate battery reserve; Appropriate pacing & sensing thresholds, and diagnostic functions; No adjustments made. (Dr. Bucio); Cards in charge. * Morbid Obesity--unchanged; diet, exercise as directed per cardiology, support w/ healthy food choices at home. * LT Current Use of Anticoagulant (Coumadin) for AFib.,INR slightly lower than goal; Cardiology will address today's dose due to inavailability of Pharmacy at hospital--Monitor INR w/ Pharmacy to dose Coumadin. 07/25/19 01:40 INR 1.57 Patient seems to be well-informed re: Coumadin usage w/ target goals 2-3 INR. Observe for side effects. * Chronic Low Back Pain w/ Lumbar Stenosis--- Stable /controlled at present. Denies need for home RX Fischer at this time. [facility]'t [facility]/ [facility] upon d[facility]c. * [facility]--Be sure H&P and D/C Summary, ECHO, EKG, and other important results are faxed to patient facility at d/c for better continuity of patient care. Thanks! * DVT/VTE ProphylaxisStable Exam reveals no signs of DVT/VTE at this time. Risk factors include: heart failure, acute respiratory failure w/ recent s epsis, prolonged immobility ([facility] ICU 06/25/2019 through 07/10/2019), age >60 years, and recently critically ill. No contraindication noted, i.e. active gastroduodenal ulcer/bleed known, bleeding within the three months [employer], Platelet count <50,000/microL, or other contraindications. SCDs at all times except for ambulation w/ frequent LEs elevation--Pt. refusing SCD's despite explanation of benefits & decreased risks of DVTE; Increase mobility as tolerated. May continue home Coumadin w/ Pharmacy monitoring doses. * Disposition: 60 minutes w/ routine admission care, patient evaluation, discussion of plan of care w/ nursing staff and patient & his spouse. Critical Care time: 60 minutes reviewing Medical Records and obtaining MR w/ assistance per Nursing staff; consulting w/ Back Tender Fourdrinier for possible transfer to another facility. Records then discussed w/ RN & Back Tender Fourdrinier w/ plan of care. Patient may go AMA, but presently after several conversations w/ him and his , he is willing to stay for needed monitoring VS and Telemetry and possible recurrence of CP. If patient is stable tomorrow, will consider d/c home if okayed per Cardiology. If patient worsens, he may need to transfer to [facility]---H&P completed w/ records ready upon ER need for transfer. Dr. Seymour is here now and seeing patient at completion of [employer] hospitalist records. [facility] Medical History Acute respiratory failure with hypoxia (Resolved) Atrial fibrillation with rapid ventricular response (Acute) Chronic atrial fibrillation (Chronic) Chronic low back pain (Chronic) Chronic respiratory failure with hypoxia, on home O2 therapy (Chronic) Chronic viral hepatitis C (Inactive) Compressed vertebrae (Acute) Elevated brain natriuretic peptide (BNP) level (Acute) Essential hypertension (Chronic) Gastroesophageal reflux disease with hiatal hernia (Chronic) Hyperlipemia (Chronic) Hypertensive cardiomegaly with heart failure (Chronic) buttermaker current use of anticoagulant (Chronic) Morbid obesity (Acute) long-term resident (Inactive) Pacemaker (Chronic) Sick sinus syndrome (Inactive) Spinal stenosis (Acute) Systolic CHF, chronic (Acute) Type 2 diabetes mellitus with complication, with long-term current use of insulin (Chronic) 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 Alcohol intake: former Substance use type: does not use Household members: spouse Housing: house Lives independently: No Highest education level completed: high school graduate service: Yes Current occupational status: retired Do you think of yourself as: straight/heterosexual Current gender identity: male
[2019-07-25] MEDS ORDERED: DUONEB NEB STA (10:44)
[2019-07-25] MEDS ORDERED: TESSALON PERLES PO SCH (11:10)
[2019-07-25] MEDS: DIABETA PO SCH ×2 (11:58→16:59)
[2019-07-25] MEDS: HUMULIN R SUBCUT SCH ×4 (11:59→22:04)
[2019-07-25] MEDS ORDERED: DECADRON 4 MG/ML SDV IM STA (12:09)
[2019-07-25] MEDS ORDERED: TESSALON PERLES PO PRN (12:30)
[2019-07-25] MEDS ORDERED: NON-FORMULARY MEDICATION PO PRN (12:30)
[2019-07-25] MEDS ORDERED: COZAAR PO SCH (12:30)
[2019-07-25] MEDS: MICRO-K CAP PO SCH (12:53)
[2019-07-25] MEDS: CARAFATE PO SCH ×3 (12:53→22:00)
[2019-07-25] MEDS: CARDIZEM PO SCH ×2 (12:54→22:01)
[2019-07-25] MEDS: LASIX TAB PO SCH (12:54)
[2019-07-25] MEDS: MORPHINE 2 MG/ML SYRINGE IVP PRN ×2 (16:02→22:21)
[2019-07-25] MEDS ORDERED: COUMADIN PO ONE (17:00)
[2019-07-25] MEDS ORDERED: COUMADIN PO SCH ×2 (17:00)
[2019-07-25] MEDS ORDERED: LANTUS SUBCUT SCH ×2 (21:00)
[2019-07-25] MEDS ORDERED: CARDIZEM CD PO SCH ×2 (21:00)
[2019-07-25] MEDS ORDERED: FLONASE NAS SCH (21:00)
[2019-07-25] MEDS ORDERED: LIPITOR PO SCH ×2 (21:00)
[2019-07-26] MEDS: SODIUM CHLORIDE 1,000 ML IV SCH (04:51)
[2019-07-26 05:27] LABS: HEMATOCRIT 43.1 % (42.0-52.0)
[2019-07-26] MEDS: CARAFATE PO SCH ×2 (06:14→11:27)
[2019-07-26] MEDS: LASIX TAB PO SCH (06:14)
[2019-07-26] MEDS: HUMULIN R SUBCUT SCH ×2 (06:33→11:27)
--- NOTE | 2019-07-26 07:37 | PCM.DC ---
Final Diagnosis: Acute Chest Pain, resolved Hypertensive Cardiomegaly w/ Chronic Systolic HF ASHD (1) Acute chest pain: Status: Acute Code(s): R07.9 - Chest pain, unspecified SNOMED Code(s): 493567808 (2) Hypertensive cardiomegaly with heart failure: Status: Chronic Code(s): I11.0 - Hypertensive heart disease with heart failure SNOMED Code(s): 181082264 (3) Chronic atrial fibrillation: Status: Chronic Code(s): I48.2 - Chronic atrial fibrillation SNOMED Code(s): 368227804 (4) Systolic CHF, chronic: Status: Acute Code(s): I50.22 - Chronic systolic (congestive) heart failure SNOMED Code(s): 342541485 (5) Elevated brain natriuretic peptide (BNP) level: Status: Acute Code(s): R79.89 - Other specified abnormal findings of blood chemistry SNOMED Code(s): 709482308 (6) Type 2 diabetes mellitus with complication, with long-term current use of insulin: Status: Chronic Code(s): E11.8 - Type 2 diabetes mellitus with unspecified complications; 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 Code(s): Z79.01 - long-term (current) use of anticoagulants SNOMED Code(s): 959883741 (13) Chronic low back pain: Status: Chronic Code(s): M54.5 - Low back pain SNOMED Code(s): 048926549 Qualifiers: Back pain laterality: bilateral Sciatica presence: unspecified whether sciatica present Qualified Code(s): M54.5 - Low back pain; G89.29 - Other chronic pain (14) 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 went AMA 07/12/2019) With multiple co-morbidities patient was felt to be stable, but too high risk to admit home from ER requiring 24-48 hrs of observation status including monitoring of cardiac levels/pain management. Prognosis at Discharge: Good, but guarded because of multiple co-morbidities and tendencies for non-compliance. Will need to f-u closely w/ [facility] cardiology & IM MD. Condition at Discharge: Stable; Chest pain of admission is resolved. VS stable. Vitals: T=97.9 F, P=92, R=16, GG=337/70, SPO2=98 RA HEENT: Eyes-no redness, swelling or d/c. Ears: pinna w/o tenderness/pain. Hearing--SNOQUALMIE w/o hearing aids. Pharynx: w/o injection, cobblestoning, lesions or PND. No dysphagia. Neck: Supple; NT; No lymphadenopathy Chest: Chest wall symmetric; no pectus deformity. TTT mid-sternal region over CPR area w/ slight indentation noted at greatest point of tenderness to palpation. Telemetry --A fib rate 80-90's. Lungs: BS much improved from yesterday w/ Coarse BS scattered throughout. Respirations easy and regular. No retractions. Intermittent TNP cough. O2 @ 2L/NC w/ O2 sat 98-99%. CVS: RRR; No murmur of gallops. No JVD. PPP 2+/4+ and =. No edema. No cyanosis; NBB Abdomen: Soft, obese, NT, no rebound tenderness or guarding, no organomegaly or masses. FRITZ/SO present. Extremities: ARAUJO well w/ symmetry. Bilaterally X4 extremities strength 2+/4+ =. No edema. No muscular tenderness, erythema, or abnormalities X4 extremities. Ambulates w/ steady gait. Neurological: A/O X4. Cooperative and pleasant. Good eye contact. Up and about in room w/o assistance; steady. Normal gait. Speech clear. No other abnormalities noted. Skin: Scattered irregular patches of bruising bilateral forearms L>R unchanged. No rash. No pallor. Normal texture for elderly man, fair turgor, warm, dry. Medications at Discharge: Ambulatory Orders Medication Instructions Recorded benzonatate 100 mg capsule (Not Used Here) 100 mg PO BID-TID PRN 07/13/19 diltiazem HCl 180 mg 180 mg PO BEDTIME 07/13/19 capsule,extended release 24 hr (D/C's 07/25/2019) fluticasone propionate 50 1 spray LAINE BEDTIME 07/13/19 mcg/actuation nasal spray,suspension (Not used here) glyburide 5 mg tablet 10 mg PO BID tab 07/13/19 guaifenesin 600 mg tablet, 600 mg PO BID 07/13/19 extended release 12 hr (Not used here) insulin glargine 100 unit/mL (3 28 unit SUBCUT BEDTIME 07/13/19 mL) subcutaneous pen ipratropium-albuterol 0.5 mg-3 3 ml IH Q6H PRN 07/13/19 mg(2.5 mg base)/3 mL nebulization soln ondansetron HCl 4 mg tablet(Not used here) 4 mg PO Q8H PRN 07/13/19 scopolamine base 1 mg over 3 days 1 patch TD Q3D PRN 07/13/19 transdermal patch (Not used here) Has one patch left for home use prn. simethicone 80 mg chewable tablet (Not used here) 80 mg PO BID-QID PRN 07/13/19 atorvastatin 10 mg PO BEDTIME 07/25/19 bisoprolol fumarate 5 mg PO DAILY 07/25/19 cholecalciferol (vitamin D3) 5,000 unit PO DAILY 07/25/19 [Vitamin D3] docusate sodium [Colace] 100 mg PO DAILY PRN 07/25/19 hydrocodone-acetaminophen 7.5/325 1 tab PO TID PRN 07/25/19 Cozaar 25mg 07/25 loading dose>>50mg 07/26/2019 1 Tab PO started Daily 07/25/19 morphine IR (home supply) 30 mg PO Q6HR PRN 07/25/19 warfarin M,T,W,Th,F,Sat 5 mg PO DIRECTED 07/25/19 warfarin Friday 7.5 mg PO DIRECTED 07/25/19 Lab/Diagnostics: Laboratory Results WBC 7.03 K/ul (4.2-10.2) 07/26/19 05:10 RBC 4.57 10^6/ul (4.70-6.10) L 07/26/19 05:10 Hgb 14.8 g/dl (14.0-18.0) 07/26/19 05:10 Hct 43.1 % (42.0-52.0) 07/26/19 05:10 MCV 94.3 fl (80.0-94.0) H 07/26/19 05:10 MCH 32.4 pg (27.0-31.0) H 07/26/19 05:10 MCHC 34.3 (31.8-35.4) 07/26/19 05:10 RDW Coeff of Radha 12.7 % (11.6-14.8) 07/26/19 05:10 Plt Count 118 10^3/uL (140-440) L 07/26/19 05:10 Immature Gran % (Auto) 0.7 % (0.0-5.0) 07/26/19 05:10 Neut % (Auto) 74.3 % (42.2-75.2) 07/26/19 05:10 Lymph % (Auto) 18.1 (10.0-50.0) 07/26/19 05:10 Foard % (Auto) 6.7 (0-10) 07/26/19 05:10 Eos % (Auto) 0.1 % (0.0-7.0) 07/26/19 05:10 Baso % (Auto) 0.1 % (0.0-3.0) 07/26/19 05:10 Immature Gran # (Auto) 0.1 (0.0-1.0) 07/26/19 05:10 Neut # (Auto) 5.2 K/ul (2.0-6.9) 07/26/19 05:10 Lymph # (Auto) 1.3 K/uL (0.60-3.4) 07/26/19 05:10 Foard # (Auto) 0.5 K/uL (0.4-2.0) 07/26/19 05:10 Eos # (Auto) 0.0 K/ul (0.0-0.7) 07/26/19 05:10 Baso # (Auto) 0.0 K/uL (0-0.2) 07/26/19 05:10 Neutrophils % (Manual) 67.0 % (42.2-75.2) 07/25/19 01:40 Lymphocytes % (Manual) 17.0 % (10.0-50.0) 07/25/19 01:40 Monocytes % (Manual) 9.0 % (0.0-10.0) 07/25/19 01:40 Myelocytes % 2.0 % (0.0-1.0) H 07/25/19 01:40 Reactive Lymphocytes 5.0 % (0.0-5.0) 07/25/19 01:40 Anisocytosis Not present (NOT PRESENT) 07/25/19 01:40 PT 15.0 SEC (9.3-11.0) H 07/25/19 01:40 INR 1.57 SI (0.0-3.9) 07/25/19 01:40 Puncture Site Rb 07/25/19 01:29 O2 Saturation 78.0 % (95-100) L 07/25/19 01:29 ABG pH 7.416 (7.35-7.45) 07/25/19 01:29 ABG pCO2 33.0 mmHg (35-45) L 07/25/19 01:29 ABG pO2 42.0 mmHg (85-100) L* 07/25/19 01:29 ABG HCO3 21.2 (22.0-26.0) L 07/25/19 01:29 ABG Total CO2 22 (22.0-28.0) 07/25/19 01:29 ABG Base Excess -3 (-2.0-2.0) L 07/25/19 01:29 Louis Test + 07/25/19 01:29 O2 Delivery Device Venous blood gas 07/25/19 01:29 FiO2 % 21.0 % 07/25/19 01:29 Sodium 134.3 mmol/L (134.5-145) L 07/26/19 05:10 Potassium 3.95 mmol/L (3.5-5.1) 07/26/19 05:10 Chloride 103.9 mmol/L (98-107) 07/26/19 05:10 Carbon Dioxide 24.7 mmol/L (22-30.0) 07/26/19 05:10 Anion Gap 9.65 07/26/19 05:10 BUN 12.9 mg/dL (9-20) 07/26/19 05:10 Creatinine 0.56 mg/dL (0.60-1.10) L 07/26/19 05:10 Estimated GFR (MDRD) 144.00 mL/min 07/26/19 05:10 BUN/Creatinine Ratio 23.03 07/26/19 05:10 Glucose 123.2 mg/dL (74-106) H D 07/26/19 05:10 Calcium 8.89 mg/dL (8.4-10.2) 07/26/19 05:10 Total Bilirubin 0.46 mg/dL (0.2-1.3) 07/25/19 01:40 AST 26.6 U/L (17-59) 07/25/19 01:40 ALT 27.0 U/L (0-50) 07/25/19 01:40 Alkaline Phosphatase 158.4 U/L (56-119) H 07/25/19 01:40 Total Creatine Kinase 28.4 U/L (55-170) L 07/25/19 17:00 Troponin I < 0.012 ng/ml (0.0000-0.120) 07/25/19 17:00 NT-Pro-B Natriuret Pep 2800.000 pg/mL (0-124) H 07/25/19 01:40 Total Protein 6.12 g/dL (6.3-8.2) L 01/26/20 01:40 Albumin 3.29 g/dL (3.5-5.0) L 07/25/19 01:40 Globulin 2.83 07/25/19 01:40 Albumin/Globulin Ratio 1.16 07/25/19 01:40 Patient: ELENITA PASCUAL Acct:[id number] Record: [id number] : 1950Loc: RADRoom/Bed: Age/Sex: 68 / MADM Status: REG CLI Date of Service: 07/13/19 Ordering Physician: JAMIL ACOSTA MD Procedure(s): CT CHEST W/O CONTRAST Report Number(s): [id number] Accession Number(s): [id number] cc: JAMIL ACOSTA MD EXAM: CT THORAX HISTORY: Shortness of breath. TECHNIQUE: CT thorax without intravenous contrast. Multiplanar images presented. COMPARISON: None FINDINGS: Mild cardiac enlargement. No pericardial effusion. There is atherosclerotic disease including the coronary artery levels. Pacemaker is noted. There are a few small nonspecific mediastinal and hilar lymph nodes. There are a few small discoid opacities in the lung bases slightly more noticeable on the left. Lungs are otherwise clear. No central vascular congestion, interstitial edema, pleural fluid or pneumothorax. Bones are within normal limits. There is a tiny sliding hiatal hernia with fluid in the lower portion of the esophagus consistent with gastroesophageal reflux. Incidental note of a fatty right adrenal nodule measuring 16 mm most consistent with an adenoma. Nonspecific bilateral perinephric fat stranding IMPRESSION: 1. There are a few small discoid opacities in the lung bases slightly more noticeable on the left. These could represent areas of atelectasis or pneumonia. Correlate clinically. Lungs are otherwise clear. 2. Cardiomegaly. 3. Atherosclerotic disease. 4. Probable tiny sliding hiatal hernia. Gastroesophageal reflux. 5. Small right adrenal adenoma. Dictated By:BILLY GUILLAUME Signed By:BILLY GUILLAUME 07/16/2019 [facility] U/S Venous Scan Arsenio Legs Doppler Patient: ELENITA PASCUAL Acct:[id number] Record: [id number] : 1950Loc: RADRoom/Bed: Age/Sex: 68 / MADM Status: REG CLI Date of Service: 07/16/19 Ordering Physician: JAMIL ACOSTA MD HISTORY: Leg edema. FINDINGS: Bilateral lower extremity venous Doppler exam. Real time doran-scale, Doppler spectral analysis and color-flow Doppler imaging performed. The veins targeted for evaluation include the common femoral, greater saphenous, profundus, femoral, popliteal, peroneal, anterior tibial and posterior tibial. The right anterior tibial veins were not seen. The evaluated veins demonstrated normal spontaneous flow and compression without evidence of thrombosis. IMPRESSION: No venous thrombosis identified within the areas evaluated. [facility][id number] Record: [id number] : 1950Loc: EDRoom/Bed: Age/Sex: 69 / MADM Status: REG ERDate of Service: 07/25/19 Ordering Physician: CHEYENNE HUDSON MD Procedure(s): CHEST, 1V AP ONLY EXAM: AP single view of the chest. HISTORY: Chest pain. FINDINGS: There is a single lead pacemaker. The cardiac silhouette and pulmonary vasculature are within normal limits. The costophrenic angles are clear. There is left basilar atelectasis and/or pneumonia. Impression: Left basilar atelectasis and/or pneumonia. Dictated By:HOWARD RICO Signed By:HOWARD RICO Education Provided to Patient and Family: * Keep appointments w/ Cardiology and PCP at [facility] as planned per Case Management. * Take your new medication Cozaar 50mg by mouth every AM as ordered. * Stop Cardizem ER 180mg and start Cardizem (short-acting) 60mg by mouth every 12 hrs as instructed on discharge. It has been changed due to findings on your ECHO of Ejection Fraction 35-40%. * You may continue your DuoNebs only as needed basis. * Home oxygen is not needed according to your testing before hospital discharge. Talk with your [facility] providers more about this if you have concerns. * Due to your GERD/heartburn, Continue your home Omeprazole daily as prior to admission. We are also adding Carafate 1Gm to be taken 30 minutes prior to meals and bedtime daily. * Take your blood pressure readings in AM before breakfast and at bedtime every day writing the blood pressure & heart rate on a log for the provider to see on each of your appointments. Call cardiology nurse if you are having symptoms with your blood pressure changes or you have reading over 200 on the top reading or > 2 readings in 2/5 days over 180 on the top. Discuss with your chest pain coordinator blood pressure goals and calling his office about these---these guidelines may be changed on your next appointment with him. Work as a team to improve your health. * Daily weights first thing every morning always naked or dressed with the same light clothing and keep record with your blood pressure readings to show your provider on your visits--to notify Cardiology nurse if >2 lbs wt gain in 1-2 days or > 3lbs in 1 week, SOB, increased TYLER, swelling hands and fingers, or other concerning symptoms for further treatment instructions. * You will need to see your Floor Grinder to discuss a Dobutamine Stress Nuclear Scan test because of your EKG findings of LBBB--recommendations of Dr. José Seymour, chest pain coordinator, and further workup for coronary artery disease. * Your pacemaker was checked by Dr. Bucio on 06/26/2020 w/ no problems found. * Your Echocardiogram done 07/25/[address] Seymour showed an ejection fraction of 35-40%; final results are sent for your [facility] chest pain coordinator viewing. * Continue with Low sodium, Low cholesterol, 1800 ADA calorie diet. Need to work with weight loss diet for 5 lb weight loss per month as discussed per Dr. Seymour. * Slowly increase your activity around your home using your rolling walker for stability. Discuss further exercise with your chest pain coordinator and possible cardiac rehab if appropriate. * Call your PCP and chest pain coordinator if questions. See handouts for further instructions for follow-up care on discharge. * Return to ER or call 911 for any severe symptoms of SOB, CP, fainting, or recurrence of past symptoms. See handouts. Follow-ups: Follow-up appointment w/ Cardiology--Dr. Doyle, [facility] [place], [place] 07/30/2019 3PM. Follow-up appointment w/ PCP at [facility] Alban Rodriguez APRN Friday07/27/2019 9:20AM [facility]. Discharge Disposition: Home Hospital Course: Elenita Pascual is a 69 yo male (Michael Dick APRN,[facility]; Floor Grinder [facility] who [facility] to [facility] 07/25/2019 1:08 AM c/o's new onset 2 hrs. 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 CP was relieved rapidly s/p Nitro 0.4mg SL X1, GI cocktail, and Decadron 0.4mg IVP and application of O2 per protocol for admission ABG's w/ O2 78.0 - pH 7.416 - pCO2 33.0 - pO2 42.0L - HCO3 21.1 - Total CO2 22 - Base Excess -3L - Louis Test + - FiO2 % 21.0 Venous blood gas. Home treatment consisted of rest and no meds, O2 or nebulizer tx's. There was associated SOB at rest, anxiety, and racing heart; denies diaphoresis, dizziness, syncope, N/V, weakness, N/T, or edema. Patient states he has not had any chest pain like this before. In the past few weeks has experienced mild aching mid-sternal area pain w/ TTT s/p re cent CPR that possibly fractured the ribs in that area. Admission labs noted CBC WNL except Plt Count 136L; PT/INR 5.1/1.57 L (goal INR 2-3 per pt.); CMP Na+ 133.1 - Fasting Glucose 177.3 & otherwise WNL; PRO BNP 2,800; GFR 105cc per minute. CXR impression was much unchanged from [facility] stay noting left basilar atelectasis and/or pneumonia. EKG shows atrial fibrillation with left bundle branch with rate of 100 per minute, no acute changes noted but the patient has left bundle branch block read per POWDER ROOM ATTENDANT and Dr. Mateus Seymour, chest pain coordinator. The patient cardiac markers are all negative. Dr. Zander Seymour, chest pain coordinator, was consulted as patient's [facility] chest pain coordinator is located in [place], [place]. Dr. Seymour performed bedside ECHO 07/25/2019 and determined EF has improved to 35- 40% (06/29/2019 EF 20-25%) noting LV cavity 5.9cm with low ejection fraction 35%; LVH with enlarged LA cavity; and valvular structures are normal. DAY 1 07/25/2019 Cardiology consult obtained w/ patient experiencing no chest pain. Telemetry remains stable. Labs as noted above. No c/o's SOB, TYLER, palpitations, f/c, sweats, abdominal pain, N/V, or new complaints. Patient is anxious to return home, but agrees w/ staying for cardiology consult. Floor Grinder adjusting medications w/ Losartan to be changed to 25 mg daily as loading agent; IVF d/c'd w/ good PO intake; Cardizem dose decreased to 60mg PO every 12 hrs. d/t low EF and HR acceptable at 80-100; Lasix 20mg PO daily along w/ Kaon 10meq PO daily; Nexium therapy contd w/ Carafate added; telemetry cont'd. No significant findings otherwise. DAY 2 07/26/2019 Patient slept w/o complaints. Denies CP, palpitations, swelling, SOB, TYLER, dizziness, N/V, abdominal pain, N/T, or other c/o's. Labs: ABG's improved O2 Sat 98% RA - pH 7.487H - pCO2 30.2 - pO2 90.0 - HCO3 22.9 - Total CO2 24 - Base Excess 0; CBC stable except Plt Count 118 L; CMP Na+ 134.3 - Creatinine 0.56 - fasting Glucose 123.2 - otherwise WNL. Patient has been up to the X2 w/ telemetry showing spontaneous AFib w/ BBB rate 150's returning to 90's when back to bed w/o further tx. Will continue observation as patient is asymptomatic at present and Losartan titrated up to 50mg daily. If no further events and patient is stable, cardiology Dr. Seymour agrees w/ discharge home and f-u w/ PCP at [facility] tomorrow and Floor Grinder 07/30/2019. Patient was admitted as Full Code OBS patient d/t Acute Chest Pain and his high risk comorbidities w/ recent admission to [facility] 06/25/2019 through 07/10/2019 w/ discharge diagnoses: sepsis, chronic afib, afib with RVR, pneumonia, acute metabolic encephalopathy, ARF with hypoxia, hyponatremia, CHF, S/A node dysfunction. It is noted a few hours after admission to [facility] that patient w/ CAP experienced sepsis developing into respiratory arrest, CPR, intubation w/ Vent X3 days, ICU care his entire [address] Bucio, [facility] Floor Grinder reported to the patient that there was no evidence of NE. His primary medications were Ceftriaxone, Vancomycin and diltiazem gtt. Patient was d/c from ICU to [place], [place] and pt. went AMA 07/12/19 afternoon as he "was tired of everyone telling him what to do." Notes his has COPD, so he has used her home supply of O2 at 2L/NC prn--if his O2 sat was 94% or less consisting generally of one or two times a day for an hour or more to relieve mild SOB. Review of requested [facility] records H&P, Progress Notes, D/C Summary, Lab results, EKG, Radiology reports, ECHO findings, and other information of [facility] with these findings (performed per POWDER ROOM ATTENDANT Hospitalist Sanam Foley): 07/25/18 Pt was admitted to PCU Day #1 w/ acute respiratory distress; Ceftriaxone and Doxycycline empiric therapy for CAP started. 06/25/2019 CT Head w/o contrast= Normal ventricle size; Minimal cortical atrophy; Moderate small vessel disease w/in the periventricular & subcortical white matter; No hemorrhage or mass effect; No cortical infarct seen; Clear paranasal sinuses. 06/25/19 CXR= Infiltrate or atelectasis RLL; The lungs are poorly inflated; Moderate cardiomegaly. 06/25/19 EKG reading A Fib w/ LBBB w/o obvious signs of acute ischemia. No rate given. 06/26/2019 CXR Portable =Atlelctatic LLL; Lungs otherwise well aerated. No pneumothorax; Heart size stable; The pulmonary vasculature are much less prominent on thei exam with decreased perbronchial and interstitial thickening; The osseous structures and surrounding soft tissues demonstrate no acute abnormality. 06/26/2019 [employer]tronic Single Chamber Pacemaker interrogation: Normal pacemaker function; Adequate battery reserve; Appropriate pacing & sensing thresholds, and diagnostic functions; No adjustments made. (Dr. Bucio) Recent abnormal labs = 07/10/19 03:43 WBC 17.3 ; Hgb 13.9 ; PLT 283; Na 129 ; K 4.9 ; CL 92 ; CO2 26; BUN 22 ; Creatinine 0.9 ; Glucose 273. 06/25/2019 14:42 Troponin <0.01 Patient was told upon discharge by chest pain coordinator, Dr. Dominick Bucio) that he did not have an NE this hospital admission. 06/29/2019 Hospital Course entry noted LVEF 20-25% No ECHO sent per [facility] as requested. Plan: Acute Chest Pain, New Onset Resolved. CP complicated w/ Hypertensive cardiomegaly w/ chronic Systolic CHF, CP Resolved EF 35-40% w/ no indications of coronary insufficiency or NE at present. Dr. Mateus Seymour, chest pain coordinator is recommending Dobutamine Stress Nuclear Scan testing and further work-up to determine the etiology of his cardiopathy and evalutaion for coronary artery disease at a place where there is an Senior Corporate Strategy Manager present. Dr. Seymour wants the patient to continue his care w/ [facility] Floor Grinder, Xin Otriz [facility] w/ appointment scheduled for 07/30/2019 3PM. Thanks to Case Management for appointment scheduling and faxing of hospital reports for this visit. Hypertensive Cardiomegaly w/ HF, --Systolic CHF,Chronic Stable, but guarded w/ recent Cardiac Arrest--Echo report as previouslyl noted. BNP appears to be Chronic d/t his Chronic health issues (Cardiology agrees); Monitor VS at home w/ log for review on clinic visits. Meds as per d/c.; Daily weights--to notify Cardiology nurse if >2 lbs wt gain in 1-2 days or > 3lbs in 1 week, SOB, increased TYLER, swelling hands and fingers, or other concerning symptoms for further treatment instructions. Take medications as directed. Chronic AFib w/ hx RVR- Stable at present; HR increased to 130-140's today w/o chest pain, but when his chronic LBP was increased due to hospital bed firmness and not taking his pain medication probably as soon as he would have at home. [facility] Floor Grinder may need to adjust his meds more at his 07/30/2019 appt. Type 2 DM w/ LT use of Insulin--Stable at present w/ SSI but not used during this visit. Continue w/ 1800 ADA diet /heart healthy diet upon d/c. Increased A1C indicating need for better home control; Pt state last A1C 08/2018 7.0; 07/13/2019 A1C 8.48. Follow-up w/ [facility] PCP upon d/c for evaluation Lantus dosing. Wt. loss would be very beneficial for diabetes control as previously recommended. Hyperlipidemia w/ ASHD, stable-Continue home Atorvastatin; diet as ordered; F-u w/ Floor Grinder for labs as needed. Essential HTN-- Con't meds as per d/c list; Medications changed per Dr. Seymour, chest pain coordinator; BP moderately elevated to mid 150's here associated w/ LBP. Pain control is important for BP control. Heart Healthy diet; monitor BP BID at home. Hx SA Node Sick Sinus Syndrome w/ Pacemaker POA--Stable; 06/26/2019 Medtronic Single Chamber Pacemaker interrogation: Normal pacemaker function; Adequate battery reserve; Appropriate pacing & sensing thresholds, and diagnostic functions; No adjustments made. (Dr. Bucio); Cardiology in charge. Morbid Obesity--Stable; diet, exercise as directed per cardiology, support w/ healthy food choices at home. LT Current Use of Anticoagulant (Coumadin) for AFib., INR stable on d/c; 07/26/19 01:40 INR 2.28 Patient seems to be well-informed re: Coumadin usage w/ target goals 2-3 INR. Observe for side effects. Chronic Low Back Pain w/ Lumbar Stenosis--- Stable & unchanged from DENTAL CHAIRSIDE ASSISTANT. Con't home RX [place] [facility] [place] [facility] per [facility] PCP. [facility] Patient--Be sure H&P and D/C Summary, ECHO, EKG, and other important results are faxed to patient facility at d/c for better continuity of patient care. Thanks! DVT/VTE ProphylaxisStable; Exam reveals no signs of DVT/VTE at this time. Patient refused SCD's. Coumadin to be continued at home as ordered. Increase mobility as tolerated. Disposition: D/C Time 75 minutes w/ routine admission care, patient evaluation, discussion of plan of care w/ nursing staff, cardiology Dr. Mateus Seymour, Case Management for [facility] appts /needs, and patient & his spouse. F-U w/ [facility] --see F-U appts above. Patient and verbalize understanding of plan of care and agree w/ plans.
[2019-07-26] MEDS: MORPHINE 2 MG/ML SYRINGE IVP PRN ×2 (08:05→12:28)
[2019-07-26] MEDS ORDERED: COZAAR PO SCH (09:00)
[2019-07-26] MEDS ORDERED: NON-FORMULARY MEDICATION PO SCH (09:00)
[2019-07-26] MEDS: CARDIZEM PO SCH (09:15)
[2019-07-26] MEDS: DIABETA PO SCH (09:16)
[2019-07-26] MEDS: MICRO-K CAP PO SCH (09:17)
[2019-07-26] MEDS ORDERED: CARDIZEM PO ONE (09:46)
--- NOTE | 2019-07-26 09:52 | CONS ---
DATE OF CONSULTATION: 07/25/2019 REASON FOR CONSULTATION: Chest pain HISTORY OF PRESENT ILLNESS: 69 year old white male came to the emergency room this morning with chest pain described by him as a bubble inside midsternal area which resolved 15-20 minutes after he was brought to the emergency room. The patient had this type of bubble bothering him. It was 5-6 on a scale of 1-10 at home, 3 hours before he came to the emergency room. The patient declined any shortness of breath with it or sweating. In the emergency room the patient was given Nitroglycerin and GI cocktail. At the present time the patient has no discomfort or pain. So far the patient's cardiac markers are negative. EKG shows atrial fibrillation with left bundle branch with rate of 100 per minute, no acute changes noted but the patient has left bundle branch block. The patient cardiac markers are all negative. The patient's old records reviewed from [facility] where he was hospitalized. He went through CPR. He was admitted there on 06/25/19, successful resuscitation was carried out. The patient's final diagnosis at the time was sepsis, chronic atrial fibrillation, pneumonia, acute metabolic encephalopathy, acute respiratory failure with hypoxemia, congestive heart failure with low ejection fraction. REVIEW OF SYSTEMS: CONSTITUTIONAL: No night sweats. No fatigue, malaise, lethargy. No fever or chills. Getting strength after hospitalization. HEENT: Eyes: No visual changes. No eye pain. No eye discharge. ENT: No sinus drainage. No epistaxis. No sinus pain. No sore throat. No odynophagia. No ear pain. No congestion. RESPIRATORY: Cough with whitish sputum, No yellowish sputum, no congestion. No hemoptysis. No shortness of breath. CARDIOVASCULAR: No angina symptoms. No CHF symptoms. Chest pain, like a bubble sitting midsternal area which resolved after 15 minutes at ER stay. No radiation of pain in any other part. Nonexertional with walking around. The patient doesn't have any chest tightness or pain. No palpitations. No orthopnea. GASTROINTESTINAL: No abdominal pain. No nausea or vomiting. No diarrhea or constipation. No hematemesis. No hematochezia. Appetite has improved. No reflux type of symptoms. GENITOURINARY: No urgency. No frequency. No dysuria. No hematuria. No obstructive symptoms. No discharge. No pain. No significant abnormal bleeding. MUSCULOSKELETAL: No musculoskeletal pain. No joint swelling. NEUROLOGICAL: No headache. No neck pain. No syncope. No seizures. No dizziness. PSYCHIATRIC: Not anxious. No depression. No suicidal thoughts. No homicidal thoughts. SKIN: No rash. No lesions. No wounds. ENDOCRINE: No unexplained weight loss. No weight gain. HEMATOLOGIC/LYMPHATIC: No anemia. No purpura. No petechiae. No prolonged or excessive bleeding. No palpable lymph nodes. MEDICATIONS: Benzonatate 100mg daily Diltazem 180mg extended release at night Glyburide 5mg tablet 10mg twice a day Insulin 28 units SUBCUT at bedtime DUO NEBS four times a day Zofran 4mg PRN Atorvastatin 10mg at bedtime Zebeta 5mg PO QAM Hydrocodone 1 tablet PO TID Morphine 30mg PO twice a day Total of 12.5mg of Coumadin daily ALLERGIES: Lisinopril, makes him cough Pregabalin PAST MEDICAL HISTORY/PAST SURGICAL HISTORY: Status post cardiac arrest on 06/25/19 Diabetes Mellitus History of Hypertension Hyperlipidemia Morbid obesity Pacemaker for past 8-9 years, placed at [facility] Chronic low 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 Nonsmoker, no alcohol abuse. Does all activity of daily living. PHYSICAL EXAMINATION: GENERAL: The patient is oriented to time, place and person. VITAL SIGNS: Temperature 97.8, pulse 78, respiratory rate 22, blood pressure 128/78 and pulse ox 99% on 2 liters. HEENT: Head normocephalic, atraumatic. Eyes: Extraocular muscles are intact. Pupils are equal, round and reactive to light and accommodation. Ears: No lesions. Nose appeared normal. Throat: No exudate or erythema. NECK: Supple. No JVD, no carotid bruit. No lymphadenopathy or thyromegaly. LUNGS: Decreased breath sounds bilaterally but good air entry. Clear to auscultation. Percussion note normal. Chest symmetrical. HEART: S1, S2 irregular, no S3. No murmurs. PMI not palpable on auscultation. No cyanosis or clubbing. No ascites. Pulses: Dorsalis pedis and posterior tibial pulses +1 bilaterally. ABDOMEN: Soft. Nontender. Bowel sounds active. No CVA tenderness. No mass felt. EXTREMITIES: No edema. Full range of motion of all extremities, equal. NEUROLOGIC: No focal deficit. Cranial nerves II through XII are grossly intact. No headache, no double vision or headache. SKIN: Not dry. Intact. Turgor - normal. LYMPHATIC: No palpable lymph nodes/no lymphedema. MUSCULOSKELETAL: Normal joints with no swelling. Muscle tone is normal. LABS: Hgb 15, hct 45, WBC 8,900 normal differential, creatinine 0.7, BUN 14, potassium 4.3, glucose 177, PRO BNP 2,800, GFR 105cc per minute. INR 1.5. Troponin CK negative. Chest x-ray atelectasis. ABG had venous blood. When I saw the patient the patient's oxygen saturation on room was 93%. He was not at all in distress. He was talking fluently. No shortness of breath. ASSESSMENT: 1. Chest pain seems to be noncardiac, atypical 2. Dilated cardiomyopathy with low ejection fraction 3. Atrial fibrillation with normal ventricular response at rest. 4. Chest wall pain from CPR 5. Status post cardiac arrest on 06/25/19 6. Diabetes Mellitus 7. History of Hypertension 8. Hyperlipidemia 9. Morbid obesity 10. Pacemaker for past 8-9 years, placed at [facility] 11. 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 History of Hepatis C RECOMMENDATIONS: 1. The patient's case discussed with Umberto Foley who is an HOUSEHOLD APPLIANCE INSTALLER. 2. Discontinue IV fluids 3. Add Losartan 25mg daily as an unloading agent 4. Decrease the Cardizem dose to 60mg twice a day as the patient has low ejection fraction and rate seems to be acceptable from 80-100 at present time. 5. Lasix 20mg PO daily along with Potassium supplements 6. Possibility of left ventricular failure 7. Chronic lung disease with clear sputum 8. Continue NEBS treatment. 9. Will add 1/2cc Decadron 10. Patient education carried out about to lose weight, BMI is 33. Weight loss diet discussed with the patient 11. Continue Nexium as ordered 12. Add Carafate 1 gram QID 13. The patient needs to have etiology of his cardiopathy to be determined. He is going to need workup for coronary artery disease which could be done at a place where there is an sessions clerk present. 14. The patient is going to need Dobutamine Stress Nuclear scan because of LBB type of pattern. 15. At present time the patient's cardiovascular status is stable with no evidence of coronary insufficiency or GA. 16. The patient's echocardiogram 2DM Mode was done this morning which showed LV cavity 5.9cm with low ejection fraction 35%. The patient has an LVH with enlarged LA cavity. The valvular structures are normal. 17. The patient's pacemaker with interrogated by Dr. Bucio on 06/26/19. Dr. Bucio is non-catia designer who took care of the patient at [facility] when he was hospitalized on 06/25/19. 18. The patient has tornado chaser who follows him regularly along with the primary care at the [facility] at [place]. The patient's is strongly advised to followup. According to the patient his followup appointment with tornado chaser is coming. Tomorrow we will send all the copies of reports to [facility] and make him an appointment for followup. Case discussed with Umberto Foley and all the recommendations. Thanks for referral. Will follow. GENNARO
[2019-07-26] MEDS: NEXIUM IV IVP SCH (10:01)
--- NOTE | 2019-07-26 13:17 | CONS ---
The patient seen on 07/25/2019: New patient on observation Followup 07/26/2019: Intermediate MTDD
--- NOTE | 2019-07-26 13:17 | CONS ---
DATE OF SERVICE: 07/26/2019 CONSULT FOLLOWUP SUBJECTIVE: 69 year old white male hospitalized on 07/25/2019 with the chest pain which was more like a bubble type of feeling having mid-substernal. The patient's symptoms had resolved by the time he came to the emergency room. The patient has become asymptomatic. He is up and about feeling a lot better. This morning his arterial blood gasses on room air showed pO2 of 90 with oxygen saturation of 98% on room air. REVIEW OF SYSTEMS: CONSTITUTIONAL: No night sweats. No fatigue, malaise, lethargy. No fever or chills. HEENT: Eyes: No visual changes. No eye pain. No eye discharge. ENT: No runny nose. No epistaxis. No sinus pain. No sore throat. No odynophagia. No ear pain. No congestion. RESPIRATORY: Mild cough with clear sputum, no congestion. No hemoptysis. CARDIOVASCULAR: No angina symptoms. No CHF symptoms. No atypical chest pain for CAD. No palpitations. No shortness of breath. GASTROINTESTINAL: No abdominal pain. No nausea or vomiting. No diarrhea or constipation. No hematemesis. No hematochezia. GENITOURINARY: No urgency. No frequency. No dysuria. No hematuria. No obstructive symptoms. No discharge. No pain. No significant abnormal bleeding. MUSCULOSKELETAL: No musculoskeletal pain. No joint swelling. No arthritis. NEUROLOGICAL: No headache. No neck pain. No syncope. No seizures. No dizziness. PSYCHIATRIC: Not anxious. No depression. No suicidal thoughts. No homicidal thoughts. SKIN: No rash. No lesions. No wounds. ENDOCRINE: No unexplained weight loss. No weight gain. HEMATOLOGIC/LYMPHATIC: No anemia. No purpura. No petechiae. No prolonged or excessive bleeding. No palpable lymph nodes. PHYSICAL EXAMINATION: VITAL SIGNS: Temperature 97.4, pulse 94, respiratory rate 16, blood pressure 115/97 and pulse ox 98% on room air. HEENT: Head normocephalic, atraumatic. Eyes: Extraocular muscles are intact. Pupils are equal, round and reactive to light and accommodation. Ears: No lesions. Nose appeared normal. Throat: No exudate or erythema. NECK: Supple. No JVD, no carotid bruit. No lymphadenopathy or thyromegaly. LUNGS: Decreased breath sounds with maybe mild expiratory wheeze but good air entry. Clear to auscultation. Percussion note normal. Chest symmetrical. HEART: S1, S2, no S3. No murmurs. No cyanosis or clubbing. No ascites. Pulses: Dorsalis pedis and posterior tibial pulses +1 to +2 bilaterally. ABDOMEN: Soft. Nontender. Bowel sounds active. No CVA tenderness. No mass felt. EXTREMITIES: No edema. Full range of motion of all extremities, equal. NEUROLOGIC: No focal deficit. Cranial nerves II through XII are grossly intact. No headache, no double vision or headache. SKIN: Not dry. Intact. Turgor - normal. LYMPHATIC: No palpable lymph nodes/no lymphedema. MUSCULOSKELETAL: Normal joints with no swelling. Muscle tone is normal. LABS: hgb 14, hct 43, WBC 7,000 normal differential, creatinine 0.5, BUN 12, potassium 3.9. ASSESSMENT: 1. Chest pain resolved likely esophageal spasm or reflux disease 2. Dilated cardiomyopathy possible systolic heart failure 3. Morbid obesity 4. Dyslipidemia 5. Atrial fibrillation 6. Chronic back pain 7. Diabetes mellitus 8. Dyslipidemia 9. Hypertension 10.Pacemaker RECOMMENDATIONS: 1. Increase the Cozaar to 50mg daily 2. Continue Cardizem 60mg twice a day along with Lasix and Potassium 3. Continue Zebeta 4. Rest of the management for other problems and as before. 5. The patient needs to be on PPI. 6. The patient explained about doing Dobutamine Stress Sestamibi. The patient was concerned about the cost and he wants it to be done at [facility]. The patient's condition is stable for now. Cardiovascular status is stable with no evidence of coronary insufficiency with negative cardiac markers. No evidence of CHF. Bronchitis is under control. Medically stable for discharge because the patient is not having any chest pain. He can have Dobutamine stress sestamibi done as an outpatient through the [facility]. The [facility] is going to be called to have an appointment with his can top setter. 7. The patient is instructed to come to the nearest emergency room if he starts having chest pain again. Understands it. He was explained about his critical condition especially dilated cardiomyopathy with evidence of probably early CHF. He needs to take his medication on regular basis. I will sign out of the case. ADDENDUM: The patient is already scheduled to be seen by primary care at [facility] tomorrow and the day after tomorrow he has an appointment with can top setter at [facility]. Considering the patient's echo findings with ejection fraction of 35% with dilated left ventricle the patient maybe a candidate for Entresto. GENNARO
[2019-07-26 14:15] VITALS: BP 112/69; TEMP 98.1
[2019-07-26] MEDS ORDERED: COUMADIN PO SCH ×2 (17:00)
--- NOTE | 2019-07-29 09:32 | ECHO2D ---
Date of Exam: 07/25/2019 Ordering Physician: Katarzyna VARNER-HOSPITALIST Room #: 121 Reason for Echo: CHEST PAIN, SHORTNESS OF BREATH, ETIOLOGY OF CARDIOMEGALY, ETIOLOGY OF CHF, ATRIAL FIBRILLATION M-Mode Normal Adult Results LV Dimensions Normal Adult Results AoV Opening excursions >1.6 >1.6 LVEDD-base- 3.5-5.8 5.9 Ao root dimensions 2.0-3.7 3.8 LVESD-base- 3.1-4.6 L. Atrium dimensions 1.9-3.8 4.9 Post. Wall thickness 0.8-1.1 1.1 IV septum (thickness) 0.7-1.2 1.3 Post. Wall excursion 0.72-1.3 0.8 Septal motion 0.6 Systolic motion R. Ventricular cavity 1.5-2.0 NORMAL LVEF 60% 35% Paradoxical septal wall motion NORMAL 2-D : DILATED LEFT VENTRICLE AND LEFT ATRIAL CAVITIES, HYPOKINETIC LEFT VENTRICLE, VALVES NORMAL, NO EFFUSION, NO THROMBUS M-MODE: MV: NORMAL AV: NORMAL TV: NORMAL PV: CHAMBER SIZE: ENLARGED LEFT ATRIAL AND LEFT VENTRICLE CAVITIES WALL MOTION: HYPOKINETIC LET VENTRICLE PERICARDIUM: NORMAL INTERPRETATION: 1. LEFT VENTRICULAR HYPERTROPHY WITH ENLARGED LEFT ATRIAL CAVITY (4.9CM) 2. ENLARGED LEFT VENTRICLE CAVITY (5.9CM) 3. HYPOKINETIC LEFT VENTRICLE WITH EJECTION FRACTION OF 35% 4. NORMAL VALVES COPY OF REPORT SENT TO [facility]
== END 2019-07-26 14:55 | disposition home or self-care (01) ==
LOC: ED 01:08 → MEDSURG B 01:08 → OBSVTOIN 02:43 → INTOOBSV 02:43 → MEDSURG B 03:02
PROVIDERS: ADMIT Nurse Practitioner Family; ATTEND Nurse Practitioner Family
DX: I50.22 Chronic systolic (congestive) heart failure; R07.9 Chest pain, unspecified; Z79.01 Long term (current) use of anticoagulants; Z79.4 Long term (current) use of insulin; E11.65 Type 2 diabetes mellitus with hyperglycemia; K21.9 Gastro-esophageal reflux disease without esophagitis; M54.5 Low back pain; R60.0 Localized edema; E66.01 Morbid (severe) obesity due to excess calories; R06.02 Shortness of breath; R79.89 Other specified abnormal findings of blood chemistry; E78.5 Hyperlipidemia, unspecified; Z95.0 Presence of cardiac pacemaker; I11.0 Hypertensive heart disease with heart failure; I25.10 Atherosclerotic heart disease of native coronary artery without angina pectoris; I48.91 Unspecified atrial fibrillation; G89.29 Other chronic pain; D35.00 Benign neoplasm of unspecified adrenal gland